=== PATIENT | female | born 1945 | race Caucasian/White ===

== ENCOUNTER 2019-01-08 08:23 | Day surgery (SDC) | payer MEDICARE ==
[~2019-01-08] VITALS: Ht 168.9 cm; Wt 90.3 kg
[~2019-01-08 08:23] MED LIST: ACETAMINOPHEN 325 MG TAB PO PRN; AMLO5TAB6 PO; ASPI1TAB PO; BALANCED SALT IRRIGATION SOLUTION 500ML BAG (FOR OR EYE MACHINE) As Ordered ONE; CALC500T49 PO; CEFUROXIME 1MG/0.1ML INTRACAMERAL INJ As Ordered ONE; CORT1OIN2 TOP; CYCLOPENTOLATE 2% OPHTH SOLN 2ML BTL OD ONE; FISH7.5C PO; HEALON DUET PRO(HEALON 10MG/ML 0.55ML & HEALON ENDOCOAT 30MG/ML 0.85ML) As Ordered ONE; LIDOCAINE 1% SDV 5 ML VIAL As Ordered ONE; LIDOCAINE 3.5 % 1ML OPHTH TOPICAL GEL OU ONE; MULT1TAB10 PO; NEOM10OI TOP; OFLOXACIN 0.3 % (OCUFLOX) OPTH SOL 5ML OD ONE; PHENYLEPHRINE 2.5% OPHTH SOL 2ML OD ONE; PHENYLEPHRINE HCL 10 % OPHTH. SOL 5ML OD PRN; POVIDONE-IODINE 5% OPHTH PREP SOL 30ML As Ordered ONE; PROPARACAINE 0.5% OPHTH SOL 15ML OD PRN; TROPICAMIDE 1% OPHTH SOLN 2ML OD ONE
[2019-01-08] MEDS ORDERED: KETOROLAC 0.5% OPHTH SOLN OD ONE (10:00)
[2019-01-08] MEDS ORDERED: TRIMETHOBENZAMIDE 300 MG CAP PO PRN (10:00)
[2019-01-08] MEDS ORDERED: AcetaZOLAMIDE 500 MG ER CAP PO ONE (10:00)
[2019-01-08 10:28] VITALS: BP 140/80
[2019-01-08] MEDS ORDERED: MIDAZOLAM INJ 2 MG/2 ML VIAL (J2250) As Ordered ONE (10:30)
[2019-01-08] MEDS ORDERED: fentaNYL 100 MCG/2 ML INJECTION (J3010) As Ordered ONE (10:30)
--- NOTE | 2019-01-09 08:04 | RO ---
DATE OF PROCEDURE: 01/08/2019 PREOPERATIVE DIAGNOSIS: Age-related nuclear cataract and astigmatism right eye. POSTOPERATIVE DIAGNOSIS: Age-related nuclear cataract and astigmatism right eye. PROCEDURE PERFORMED: Femtosecond cataract extraction with posterior chamber intraocular lens implantation and Optiwave Refractive Analysis (ORA). Lens used was an AU00T0, 17.5 diopter. SURGEON: Maria Alejandra Oconnor MD APPARATUS ENGINEERING TECHNOLOGIST: ANESTHESIA: Topical with sedation. DESCRIPTION OF PROCEDURE: Patient was prepped and draped in usual fashion. A lid speculum was placed between the lids. The eye was fixated. A stab incision was made into the anterior chamber. 1% nonpreserved lidocaine was instilled. Then viscoelastic was instilled. The main incision was then opened with the incision diaper folder, and the anterior capsulorrhexis was removed, was performed by the laser. The lens was then rocked to remove any gas from behind it, and then it was freely movable in the capsular bag. The phacoemulsification unit was used to groove the nucleus in two meridians. The nucleus was cracked into four quadrants. Each quadrant was removed with the phacoemulsification unit. Any remaining cortex was removed with the irrigation and aspiration (I and A) unit. The capsular bag was refilled with viscoelastic, and then the intraocular pressure measured and found to be adequate for ORA. The ORA was lowered into place, focused on the apex of the cornea, and aligned to the patient. Readings were made, and an appropriate intraocular lens was chosen from the data generated by the ORA. The lens was then injected into the eye with its snuff box finisher and into the capsular bag. It was in great position. Any remaining viscoelastic was removed with the I and A unit. The wound was then hydrated, and balanced salt solution (BSS) and cefuroxime were instilled. Patient tolerated this procedure well and went to recovery room in stable condition. Edited: 01/09/2019 [id number] vlm
== END 2019-01-08 10:29 | disposition home or self-care (01) ==
LOC: M SDC 08:23
PROVIDERS: ATTEND Ophthalmology
DX: H25.11 Age-related nuclear cataract, right eye (principal); H52.201 Unspecified astigmatism, right eye; I10 Essential (primary) hypertension; M54.9 Dorsalgia, unspecified; N18.3 Chronic kidney disease, stage 3 (moderate); M12.9 Arthropathy, unspecified; E78.1 Pure hyperglyceridemia; E78.5 Hyperlipidemia, unspecified; H91.90 Unspecified hearing loss, unspecified ear; H01.009 Unspecified blepharitis unspecified eye, unspecified eyelid; E66.9 Obesity, unspecified; Z68.32 Body mass index [BMI] 32.0-32.9, adult; Z79.899 Other long term (current) drug therapy; Z79.82 Long term (current) use of aspirin
CPT/HCPCS: 66984; 92015; J2250; J3010; V2632

== ENCOUNTER 2019-01-29 07:45 | Day surgery (SDC) | payer MEDICARE ==
[~2019-01-29] VITALS: Ht 167.6 cm; Wt 89.8 kg
[~2019-01-29 07:45] MED LIST changes: -CYCLOPENTOLATE 2% OPHTH SOLN 2ML BTL OD ONE; +CYCLOPENTOLATE 2% OPHTH SOLN 2ML BTL OS ONE; -OFLOXACIN 0.3 % (OCUFLOX) OPTH SOL 5ML OD ONE; +OFLOXACIN 0.3 % (OCUFLOX) OPTH SOL 5ML OS ONE; -PHENYLEPHRINE 2.5% OPHTH SOL 2ML OD ONE; +PHENYLEPHRINE 2.5% OPHTH SOL 2ML OS ONE; -PHENYLEPHRINE HCL 10 % OPHTH. SOL 5ML OD PRN; +PHENYLEPHRINE HCL 10 % OPHTH. SOL 5ML OS PRN; -PROPARACAINE 0.5% OPHTH SOL 15ML OD PRN; +PROPARACAINE 0.5% OPHTH SOL 15ML OS PRN; -TROPICAMIDE 1% OPHTH SOLN 2ML OD ONE; +TROPICAMIDE 1% OPHTH SOLN 2ML OS ONE
[2019-01-29] MEDS ORDERED: fentaNYL 100 MCG/2 ML INJECTION (J3010) As Ordered ONE (07:56)
[2019-01-29] MEDS ORDERED: MIDAZOLAM INJ 2 MG/2 ML VIAL (J2250) As Ordered ONE (07:56)
[2019-01-29] MEDS ORDERED: AcetaZOLAMIDE 500 MG ER CAP As Ordered ONE (10:16)
[2019-01-29 10:20] VITALS: BP 139/63
[2019-01-29] MEDS ORDERED: KETOROLAC 0.5% OPHTH SOLN OS ONE (10:30)
[2019-01-29] MEDS ORDERED: TRIMETHOBENZAMIDE 300 MG CAP PO PRN (10:30)
[2019-01-29] MEDS ORDERED: AcetaZOLAMIDE 500 MG ER CAP PO ONE (10:30)
--- NOTE | 2019-01-29 16:26 | RO ---
DATE OF PROCEDURE: 01/29/2019 PREOPERATIVE DIAGNOSIS: Age-related nuclear cataract left eye. POSTOPERATIVE DIAGNOSIS: Age-related nuclear cataract left eye. PROCEDURE PERFORMED: Femtosecond cataract extraction with posterior chamber intraocular lens implantation and Optiwave Refractive Analysis (ORA). Lens used was an AU00T0, 18.0 diopter. SURGEON: Maria Alejandra Oconnor MD INDUSTRIAL ROOF PLUMBER: ANESTHESIA: Topical with sedation. DESCRIPTION OF PROCEDURE: Patient was prepped and draped in usual fashion. A lid speculum was placed between the lids. The eye was fixated. A stab incision was made into the anterior chamber. 1% nonpreserved lidocaine was instilled. Then viscoelastic was instilled. The main incision was then opened with the incision gas welder apprentice, and the anterior capsulorrhexis was removed, was performed by the laser. The lens was then rocked to remove any gas from behind it, and then it was freely movable in the capsular bag. The phacoemulsification unit was used to groove the nucleus in two meridians. The nucleus was cracked into four quadrants. Each quadrant was removed with the phacoemulsification unit. Any remaining cortex was removed with the irrigation and aspiration (I and A) unit. The capsular bag was refilled with viscoelastic, and then the intraocular pressure measured and found to be adequate for ORA. The ORA was lowered into place, focused on the apex of the cornea, and aligned to the patient. Readings were made, and an appropriate intraocular lens was chosen from the data generated by the ORA. The lens was then injected into the eye with its card dealer and into the capsular bag. It was in great position. Any remaining viscoelastic was removed with the I and A unit. The wound was then hydrated, and balanced salt solution (BSS) and cefuroxime were instilled. Patient tolerated this procedure well and went to recovery room in stable condition.
== END 2019-01-29 10:34 | disposition home or self-care (01) ==
LOC: M SDC 07:45
PROVIDERS: ATTEND Ophthalmology
DX: H25.12 Age-related nuclear cataract, left eye (principal); I10 Essential (primary) hypertension; Z79.82 Long term (current) use of aspirin; Z79.899 Other long term (current) drug therapy; G43.909 Migraine, unspecified, not intractable, without status migrainosus
CPT/HCPCS: 66984; 92015; J2250; J3010; V2632

== ENCOUNTER → 2020-01-20 | Outpatient (REF) | payer MEDICARE ==
[~2020-01-20] MED LIST changes: -ACETAMINOPHEN 325 MG TAB PO PRN; -ASPI1TAB PO; +ASPI81TA26 PO; -BALANCED SALT IRRIGATION SOLUTION 500ML BAG (FOR OR EYE MACHINE) As Ordered ONE; -CEFUROXIME 1MG/0.1ML INTRACAMERAL INJ As Ordered ONE; -CYCLOPENTOLATE 2% OPHTH SOLN 2ML BTL OS ONE; -HEALON DUET PRO(HEALON 10MG/ML 0.55ML & HEALON ENDOCOAT 30MG/ML 0.85ML) As Ordered ONE; -LIDOCAINE 1% SDV 5 ML VIAL As Ordered ONE; -LIDOCAINE 3.5 % 1ML OPHTH TOPICAL GEL OU ONE; -OFLOXACIN 0.3 % (OCUFLOX) OPTH SOL 5ML OS ONE; -PHENYLEPHRINE 2.5% OPHTH SOL 2ML OS ONE; -PHENYLEPHRINE HCL 10 % OPHTH. SOL 5ML OS PRN; -POVIDONE-IODINE 5% OPHTH PREP SOL 30ML As Ordered ONE; -PROPARACAINE 0.5% OPHTH SOL 15ML OS PRN; -TROPICAMIDE 1% OPHTH SOLN 2ML OS ONE
== END ==
LOC: M SFHCDERM 16:20
PROVIDERS: ATTEND Dermatology
DX: L40.9 Psoriasis, unspecified (principal); Z53.8 Procedure and treatment not carried out for other reasons

== ENCOUNTER → 2020-01-20 | Outpatient (CLI) | payer MEDICARE ==
[2020-01-20 10:29] LABS: HEMATOCRIT 47.4 % (36.0-47.0); HEMOGLOBIN 15.7 g/dl (12.0-15.5); MEAN CORPUSCULAR HEMOGLOBIN 29.6 pg (27.0-33.0); MEAN CORPUSCULAR HGB CONC 33.1 g/dl (32.0-36.5); MEAN CORPUSCULAR VOLUME 89.4 fl (80.0-96.0); PLATELET COUNT, AUTOMATED 318 10^3/uL (150-450); WHITE BLOOD COUNT 7.2 10^3/uL (4.0-10.0)
[2020-01-20 10:51] LABS: ALBUMIN 3.9 GM/DL (3.2-5.2); BILIRUBIN,DIRECT 0.2 MG/DL (0.0-0.2); BILIRUBIN,TOTAL 0.6 MG/DL (0.2-1.0); TOTAL PROTEIN 7.5 GM/DL (6.4-8.2)
== END ==
LOC: M LAB 09:21
PROVIDERS: ATTEND Dermatology
DX: L40.9 Psoriasis, unspecified (principal)
CPT/HCPCS: 36415; 80076; 84478; 85027; G0463

== ENCOUNTER → 2020-04-02 | Outpatient (REF) | payer MEDICARE | LOC: M SFHCDERM 11:33 | PROVIDERS: ATTEND Dermatology | DX: L40.9 Psoriasis, unspecified (principal) ==

== ENCOUNTER → 2022-11-06 | Outpatient (REF) | payer MEDICARE ==
[~2022-11-06] MED LIST changes: +AMLO1TAB24 PO; -AMLO5TAB6 PO; +FISH10005 PO; -FISH7.5C PO
== END ==
LOC: M SFHCDERM 14:46
PROVIDERS: ATTEND Physician Assistant
DX: D04.4 Carcinoma in situ of skin of scalp and neck (principal)

== ENCOUNTER → 2025-10-27 | Outpatient (CLI) | payer MEDICARE ==
[~2025-10-27] MED LIST changes: -CORT1OIN2 TOP; -FISH10005 PO; +FISH1CAP38 PO; +HYDR28OI12 TOP; +METHACHOLINE KIT (6 VIAL.NEB PREMIX) INH ONE
== END ==
LOC: M CARPUL 09:22
PROVIDERS: ATTEND Physician Assistant
DX: R06.00 Dyspnea, unspecified (principal)
CPT/HCPCS: 94070; 95070; J7674